=== PATIENT | female | born 1995 | race Caucasian/White ===

== ENCOUNTER 2017-03-03 11:33 | Emergency (ER) | payer SELFPAY ==
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
[2017-03-03 15:49] VITALS: BP 122/70
== END 2017-03-03 15:48 | disposition home or self-care (01) ==
LOC: ED 11:33
DX: Z04.1 Encounter for examination and observation following transport accident (principal); R51 Headache
CPT/HCPCS: 70450; 71250; 74150; 99282